=== PATIENT | female | born 1990 | race African-American/Black ===

== ENCOUNTER → 2020-06-22 09:28 | Outpatient (CLI) | payer OTHER, SELFPAY ==
[2020-06-22 14:13] LABS: Urine N gonorrhoeae NOT DETECTED
[2020-06-22 14:19] LABS: Urine Chlamydia NOT DETECTED
== END ==
PROVIDERS: PCP Family Medicine; Visit Provider Specialist
DX: Z34.02 Encounter for supervision of normal first pregnancy, second trimester (principal); Z3A.26 26 weeks gestation of pregnancy
CPT/HCPCS: 87491; 87591

== ENCOUNTER → 2020-07-01 10:58 | Outpatient (CLI) | payer OTHER, SELFPAY ==
[2020-07-01 12:48] LABS: Hematocrit 33.9 % (36-46); Hemoglobin 11.3 g/dL (12.0-16.0)
[2020-07-01 13:15] LABS: GTT (PREG) 1 Hour PP 50gm Dose 117 mg/dL (76-139)
== END ==
PROVIDERS: PCP Family Medicine; Referring Provider Specialist; Visit Provider Specialist
DX: Z34.02 Encounter for supervision of normal first pregnancy, second trimester (principal); Z3A.26 26 weeks gestation of pregnancy
CPT/HCPCS: 36415; 82950; 85014; 85018

== ENCOUNTER → 2020-08-31 16:37 | Outpatient (CLI) | payer OTHER, SELFPAY ==
[2020-09-01 12:14] LABS: Strep Grp B PCR NEG for Grp B Strep
== END ==
PROVIDERS: PCP Family Medicine; Visit Provider Specialist
DX: Z34.03 Encounter for supervision of normal first pregnancy, third trimester (principal); Z3A.36 36 weeks gestation of pregnancy
CPT/HCPCS: 87653

== ENCOUNTER 2020-09-09 16:45 | Outpatient (CLI) | payer OTHER, SELFPAY ==
[2020-09-09 17:41] LABS: Add Manual Diff / Slide Review NO; Basophils Absolute Auto 0 /uL (0-100); Basophils Percent Auto 0.6 % (0-2); Eosinophils Absolute Auto 100 /uL (0-450); Eosinophils Percent Auto 1.6 % (2-4); Hematocrit 35.5 % (36-46); Hemoglobin 11.9 g/dL (12.0-16.0); Lymphocytes Absolute Auto 1100 /uL (1100-4500); Lymphocytes Percent Auto 21.7 % (25-40); Mean Corpuscular HGB Conc 33.6 % (30-36); Mean Corpuscular Hemoglobin 31.6 PG (26-34); Mean Corpuscular Volume 94.1 fL (80-100); Monocytes Absolute Auto 700 /uL (0-900); Monocytes Percent Auto 13.1 % (3-14); Neutrophils Absolute Auto 3300 /uL (1500-7000); Platelet Count 223 X10^3/uL (150-400); Red Blood Cell Count 3.77 X10^6/uL (4.0-5.2); Red Cell Distribution Width 13.6 % (11.6-14.8); White Blood Cell Count 5.3 X10^3/uL (4.5-11.0)
[2020-09-09 17:51] LABS: Aspartate Aminotransferase 23 IU/L (14-36); BUN Creatinine Ratio 9.9 (6-22); Blood Urea Nitrogen 9 mg/dL (7-17); Estimated Glomerular Filt Rate > 60.0 mL/min (>60); Uric Acid 5.6 mg/dL (2.5-6.2)
[2020-09-09 18:02] LABS: Creatinine Urine Random 74.3 mg/dL; Protein (Total) Urine Random 14 mg/dL (0-12); Protein Creatinine Ratio Urine 0.18 GRAM/24H
--- NOTE | 2020-09-09 18:19 | P.TNLD_ITS ---
Visit Information Visit Information Date of evaluation: 09/09/20 Primary OB Provider: Tessa Valle Reason for Evaluation: Yes non-stress test Comments/Additional reasons for admission: Patient sent from clinic for diane luation for preeclampsia given elevated blood pressures in clinic, hand swelling, mild headache. Patient reports mild headache is typical for her after chiropractor appointments, has not tried anything. Vital Signs Vital Signs: 118-140/72-90 [facility] Medical History Anemia Back pain HSV-1 (herpes simplex virus 1) infection No known health problems Velamentous insertion of umbilical cord (~05/10/20) Family History Mother Stillbirth Miscarriage Father Diabetes mellitus Hypertension Arthritis Cataracts, both eyes Hyperlipidemia Grandmother Unknown whether patient has any health problems Grandfather Diabetes mellitus Unknown whether patient has any health problems Grandmother Unknown whether patient has any health problems Grandfather Unknown whether patient has any health problems Social History marital status: household members: spouse lives independently: Yes pets and animals: Yes (X 1 Dog) 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 level: 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) occupational status: unemployed current occupational exposures/hazards: No ( 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 [employer]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: No Smoking Status: Unknown if ever smoked second hand exposure: No alcohol intake: former (not with ) substance use type: does not use Review of Systems Constitutional Constitutional: Reports system reviewed and no additional complaints, except as documented Objective Labs Result Diagrams: 09/09/20 17:30 09/09/20 17:30 Labs: Laboratory Results - last 24 hr 09/09/20 09/09/20 09/09/20 17:00 17:30 17:30 WBC 5.3 RBC 3.77 L Hgb 11.9 L Hct 35.5 L MCV 94.1 MCH 31.6 MCHC 33.6 RDW 13.6 Plt Count 223 Neut % (Auto) 63.0 Lymph % (Auto) 21.7 L [place] % (Auto) 13.1 Eos % (Auto) 1.6 L Baso % (Auto) 0.6 Neut # (Auto) 3300 Lymph # (Auto) 1100 [place] # (Auto) 700 Eos # (Auto) 100 Baso # (Auto) 0 BUN 9 Creatinine 0.91 Estimated GFR > 60.0 BUN/Creatinine Ratio 9.9 Uric Acid 5.6 AST 23 U Random Total Protein 14 H Urine Creatinine 74.3 Protein/Creatinin Ratio 0.18 Evaluation Evaluation Baseline heart rate: 130 Variability: Moderate (11-25) monitor accelerations: Present monitor decelerations: Absent Contraction Frequency (minutes): 10 Category of Tracing: Reactive Status: Category l Laboratory results: Laboratory Tests 09/09/20 09/09/20 09/09/20 17:00 17:30 17:30 WBC 5.3 RBC 3.77 L Hgb 11.9 L Hct 35.5 L MCV 94.1 MCH 31.6 MCHC 33.6 RDW 13.6 Plt Count 223 Neut % (Auto) 63.0 Lymph % (Auto) 21.7 L [place] % (Auto) 13.1 Eos % (Auto) 1.6 L Baso % (Auto) 0.6 Neut # (Auto) 3300 Lymph # (Auto) 1100 [place] # (Auto) 700 Eos # (Auto) 100 Baso # (Auto) 0 BUN 9 Creatinine 0.91 Estimated GFR > 60.0 BUN/Creatinine Ratio 9.9 Uric Acid 5.6 AST 23 U Random Total Protein 14 H Urine Creatinine 74.3 Protein/Creatinin Ratio 0.18 Diagnosis, Plan/Disposition Plan/Disposition Plan: Patient with normal preeclampsia labs including no proteinuria, does not meet diagnostic criteria for gestational hypertension. Given that patient is prior to 39 weeks and that she does not mean diagnostic criteria with largely normal blood pressures, patient to be closely monitored. Precautions for return discussed, patient return in 48 hours for repeat blood pressure monitoring NST. For home blood pressure monitoring, rest. OB Disposition: home
[2020-09-09] MEDS: ACETAMINOPHEN 325 MG TABLET 650 MG PO (18:32)
== END 2020-09-09 18:40 | disposition home or self-care (01) ==
LOC: LABOR 16:59 → OB 09-13 07:49
PROVIDERS: PCP Family Medicine; Referring Provider Obstetrics & Gynecology; Visit Provider Obstetrics & Gynecology
DX: O26.893 Other specified pregnancy related conditions, third trimester (principal); R03.0 Elevated blood-pressure reading, without diagnosis of hypertension; M79.89 Other specified soft tissue disorders; R51.9 Headache, unspecified; Z3A.38 38 weeks gestation of pregnancy
CPT/HCPCS: 59050; 82570; 84156; 84450; 84550; 85025; G0378; G0379

== ENCOUNTER 2020-09-11 12:13 | Outpatient (CLI) | payer OTHER, SELFPAY ==
--- NOTE | 2020-09-11 12:41 | PM.OBTRLD ---
Visit Information Visit Information Date of evaluation: 09/11/20 Primary OB Provider: Manjula San On-call OB Provider: Danna Reveles Reason for Evaluation: Yes non-stress test non-stress test reason: hypertension/pre-eclampsia Vital Signs Vital Signs: 140s over 90s, 140s over 90s, 130s over 80s [facility] Medical History Anemia Back pain HSV-1 (herpes simplex virus 1) infection No known health problems Velamentous insertion of umbilical cord (~05/10/20) Family History Mother Stillbirth Miscarriage Father Diabetes mellitus Hypertension Arthritis Cataracts, both eyes Hyperlipidemia Grandmother Unknown whether patient has any health problems Grandfather Diabetes mellitus Unknown whether patient has any health problems Grandmother Unknown whether patient has any health problems Grandfather Unknown whether patient has any health problems Social History marital status: household members: spouse lives independently: Yes pets and animals: Yes (X 1 Dog) 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 level: 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) occupational status: unemployed current occupational exposures/hazards: No ( 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 Smoking Status: Unknown if ever smoked second hand exposure: No alcohol intake: former (not with ) substance use type: does not use Exam Vital Signs (past 8 hours): Generally: Patient lying in bed on her left side, no acute distress Evaluation Evaluation Baseline heart rate: 135 Variability: Moderate (11-25) monitor accelerations: Present monitor decelerations: Absent Contraction Frequency (minutes): 12 Uterine Contraction Intensity: Mild Category of Tracing: Reactive Cervical dilation (cm): 1 Cervical effacement (%): 80 Diagnosis, Plan/Disposition Plan/Disposition Plan: Assessment: 30-year-old 1 para 0 at 38 and 3 7th weeks gestation with gestational hypertension Reactive nonstress test Plan: Follow-up with Dr. San on September 14, 2020 for routine OB appointment Signs and symptoms of labor and preeclampsia reviewed kick counts reviewed OB Disposition: home
== END 2020-09-11 12:35 | disposition home or self-care (01) ==
LOC: LABOR 12:46 → OB 09-13 07:48
PROVIDERS: PCP Family Medicine; Referring Provider Obstetrics & Gynecology; Visit Provider Obstetrics & Gynecology
DX: O13.3 Gestational [pregnancy-induced] hypertension without significant proteinuria, third trimester (principal); Z3A.38 38 weeks gestation of pregnancy
CPT/HCPCS: 59025; G0378; G0379

== ENCOUNTER 2020-09-15 13:31 | Observation (INO) | payer OTHER, SELFPAY ==
[2020-09-15 14:28] LABS: Add Manual Diff / Slide Review NO; Basophils Absolute Auto 0 /uL (0-100); Basophils Percent Auto 0.6 % (0-2); Eosinophils Absolute Auto 100 /uL (0-450); Eosinophils Percent Auto 1.3 % (2-4); Hemoglobin 11.8 g/dL (12.0-16.0); Lymphocytes Absolute Auto 1000 /uL (1100-4500); Mean Corpuscular HGB Conc 33.6 % (30-36); Mean Corpuscular Hemoglobin 31.6 PG (26-34); Mean Corpuscular Volume 94.1 fL (80-100); Monocytes Absolute Auto 600 /uL (0-900); Monocytes Percent Auto 12.6 % (3-14); Neutrophils Absolute Auto 3400 /uL (1500-7000); Neutrophils Percent Auto 66.5 % (50-75); Platelet Count 225 X10^3/uL (150-400); Red Blood Cell Count 3.72 X10^6/uL (4.0-5.2); Red Cell Distribution Width 13.4 % (11.6-14.8); White Blood Cell Count 5.1 X10^3/uL (4.5-11.0)
[2020-09-15 14:41] LABS: Alanine Aminotransferase 17 IU/L (<35); Albumin 3.4 g/dL (3.5-5.0); Alkaline Phosphatase 131 U/L (38-126); Aspartate Aminotransferase 24 IU/L (14-36); BUN Creatinine Ratio 7.1 (6-22); Bilirubin Total 0.4 mg/dL (0.2-1.3); Blood Urea Nitrogen 8 mg/dL (7-17); Carbon Dioxide 24 mmol/L (22-32); Chloride 104 mmol/L (98-107); Estimated Glomerular Filt Rate 56.5 mL/min (>60); Globulin 3.3 g/dL (1.7-4.1); Glucose 102 mg/dL (70-100); HEMOLYSIS < 15 (0-50); Potassium 3.7 mmol/L (3.4-5.1); Sodium 132 mmol/L (137-145); Total Protein 6.7 g/dL (6.3-8.2)
[2020-09-15 15:07] LABS: Creatinine Urine Random 179.2 mg/dL; Protein (Total) Urine Random 14 mg/dL (0-12); Protein Creatinine Ratio Urine 0.07 GRAM/24H
--- NOTE | 2020-09-15 15:27 | P.TNLD_ITS ---
Visit Information Visit Information Date of evaluation: 09/15/20 Primary OB Provider: Manjula San Reason for Evaluation: Yes non-stress test non-stress test reason: hypertension/pre-eclampsia Vital Signs Vital Signs: Blood pressure 142/92 to 128/88 pulse 100 PFSH Medical History Anemia Back pain HSV-1 (herpes simplex virus 1) infection No known health problems Velamentous insertion of umbilical cord (~05/10/20) Family History Mother Stillbirth Miscarriage Father Diabetes mellitus Hypertension Arthritis Cataracts, both eyes Hyperlipidemia Grandmother Unknown whether patient has any health problems Grandfather Diabetes mellitus Unknown whether patient has any health problems Grandmother Unknown whether patient has any health problems Grandfather Unknown whether patient has any health problems Social History marital status: household members: spouse lives independently: Yes pets and animals: Yes (X 1 Dog) 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 She has good movement. No leakage of fluid. No regular contractions. Objective Labs Result Diagrams: 09/15/20 14:18 09/15/20 14:18 Labs: Laboratory Results - last 24 hr 09/15/20 09/15/20 09/15/20 14:18 14:18 14:50 WBC 5.1 RBC 3.72 L Hgb 11.8 L Hct 35.0 L MCV 94.1 MCH 31.6 MCHC 33.6 RDW 13.4 Plt Count 225 Neut % (Auto) 66.5 Lymph % (Auto) 19.[address] [place] % (Auto) 12.6 Eos % (Auto) 1.3 L Baso % (Auto) 0.6 Neut # (Auto) 3400 Lymph # (Auto) [address] [place] # (Auto) 600 Eos # (Auto) 100 Baso # (Auto) 0 Sodium 132 L Potassium 3.7 Chloride 104 Carbon Dioxide 24 BUN 8 Creatinine 1.13 H Estimated GFR 56.5 L BUN/Creatinine Ratio 7.1 Glucose 102 H Calcium 9.0 Total Bilirubin 0.4 AST 24 ALT 17 Alkaline Phosphatase 131 H Total Protein 6.7 Albumin 3.4 L Globulin 3.3 Albumin/Globulin Ratio 1.0 U Random Total Protein 14 H Urine Creatinine 179.2 Protein/Creatinin Ratio 0.07 Evaluation Evaluation Baseline heart rate: 125 Variability: Average (6-10) monitor accelerations: Present monitor decelerations: Absent Contraction Frequency (minutes): 0 Category of Tracing: Reactive Status: Category l Laboratory results: Laboratory Tests 09/15/20 09/15/20 09/15/20 14:18 14:18 14:50 WBC 5.1 RBC 3.72 L Hgb 11.8 L Hct 35.0 L MCV 94.1 MCH 31.6 MCHC 33.6 RDW 13.4 Plt Count 225 Neut % (Auto) 66.5 Lymph % (Auto) 19.[address] [place] % (Auto) 12.6 Eos % (Auto) 1.3 L Baso % (Auto) 0.6 Neut # (Auto) 3400 Lymph # (Auto) [address] [place] # (Auto) 600 Eos # (Auto) 100 Baso # (Auto) 0 Sodium 132 L Potassium 3.7 Chloride 104 Carbon Dioxide 24 BUN 8 Creatinine 1.13 H Estimated GFR 56.5 L BUN/Creatinine Ratio 7.1 Glucose 102 H Calcium 9.0 Total Bilirubin 0.4 AST 24 ALT 17 Alkaline Phosphatase 131 H Total Protein 6.7 Albumin 3.4 L Globulin 3.3 Albumin/Globulin Ratio 1.0 U Random Total Protein 14 H Urine Creatinine 179.2 Protein/Creatinin Ratio 0.07 Diagnosis, Plan/Disposition Final Diagnosis (1) Hypertension affecting in third trimester: Status: Acute Plan/Disposition Plan: Reactive nonstress test. PIH labs are unchanged. Patient would prefer not to be induced. Despite discussion of possibility that her high blood pressure will turn into preeclampsia with possible seizure that could her harm her and/or the baby.
== END 2020-09-15 15:20 | disposition home or self-care (01) ==
PROVIDERS: Admitting Provider Specialist; PCP Family Medicine; Referring Provider Specialist; Visit Provider Specialist
DX: O13.3 Gestational [pregnancy-induced] hypertension without significant proteinuria, third trimester (principal); Z3A.39 39 weeks gestation of pregnancy
CPT/HCPCS: 36415; 59025; 59050; 80053; 82570; 84156; 85025; G0378; G0379

== ENCOUNTER 2020-09-19 11:19 | Inpatient (IN) | payer OTHER, SELFPAY ==
--- NOTE | 2020-09-19 11:33 | DI.US.S_ITS ---
PROCEDURE: US OB BIOPHYSICAL PROFILE INDICATIONS: HTN OUTSIDE/PRIOR DATING DATA: Last menstrual period (LMP): 12/17/2019 . LMP-based estimated date of delivery (SAL): 09/22/2020 . First dating scan (date and location): 06/22/2020 . Estimated date of delivery (SAL) from first dating scan: 09/26/2020 . TECHNIQUE: Real-time scanning was performed of the fetus, with image documentation and biometric measurements. Biophysical profile was also obtained. COMPARISON: None. FINDINGS: General: A single living intrauterine gestation is present. Presentation: Vertex. Placenta: Placental position is left fundus , without previa. Amniotic fluid index: 20 cm, normal range is 5-24 cm. heart rate: 130 beats per minute. Maternal cervical canal: Not measured. Biophysical profile: Tone: 2 points. Movement: 2 points. Respiration: 2 points. Largest pocket of fluid: 2 points. Umbilical artery Doppler: Not measured IMPRESSION: Ultrasound BPP = 8 Dictated by: Ashok Person M.D. on 09/19/2020 at 13:38 Approved by: Ashok Person M.D. on 09/19/2020 at 13:41
[2020-09-19 12:45] LABS: Add Manual Diff / Slide Review NO; Basophils Absolute Auto 0 /uL (0-100); Basophils Percent Auto 0.3 % (0-2); Eosinophils Absolute Auto 100 /uL (0-450); Hematocrit 35.9 % (36-46); Hemoglobin 12.1 g/dL (12.0-16.0); Lymphocytes Absolute Auto 1000 /uL (1100-4500); Lymphocytes Percent Auto 18.2 % (25-40); Mean Corpuscular HGB Conc 33.6 % (30-36); Monocytes Absolute Auto 600 /uL (0-900); Monocytes Percent Auto 10.9 % (3-14); Neutrophils Absolute Auto 3700 /uL (1500-7000); Neutrophils Percent Auto 69.6 % (50-75); Platelet Count 217 X10^3/uL (150-400); Red Blood Cell Count 3.78 X10^6/uL (4.0-5.2); Red Cell Distribution Width 13.9 % (11.6-14.8); White Blood Cell Count 5.4 X10^3/uL (4.5-11.0)
[2020-09-19 13:01] LABS: Alanine Aminotransferase 17 IU/L (<35); Albumin 3.5 g/dL (3.5-5.0); Albumin Globulin Ratio 1.1 (1.0-2.8); Alkaline Phosphatase 131 U/L (38-126); Aspartate Aminotransferase 23 IU/L (14-36); BUN Creatinine Ratio 10.8 (6-22); Bilirubin Total 0.3 mg/dL (0.2-1.3); Blood Urea Nitrogen 11 mg/dL (7-17); Calcium 9.2 mg/dL (8.4-10.2); Carbon Dioxide 25 mmol/L (22-32); Chloride 105 mmol/L (98-107); Estimated Glomerular Filt Rate > 60.0 mL/min (>60); Globulin 3.2 g/dL (1.7-4.1); Glucose 82 mg/dL (70-100); HEMOLYSIS < 15 (0-50); Lactate Dehydrogenase 343 U/L (313-618); Potassium 3.9 mmol/L (3.4-5.1); Sodium 131 mmol/L (137-145); Total Protein 6.7 g/dL (6.3-8.2)
[2020-09-19 13:02] LABS: Uric Acid 5.4 mg/dL (2.5-6.2)
[2020-09-19 15:55] VITALS: BP 140/89
[2020-09-19 16:11] LABS: COVID19 -Nasal RAPID Negative (Negative)
--- NOTE | 2020-09-19 16:57 | PM.OBHP.1 ---
OB HPI Date/Time Date of admission: 09/19/20 Date Patient Seen: 09/19/20 Time Patient Seen: 12:30 History of Present Condition Chief complaint: OBSERVATION : 1 Para: 0 Estimated Date of Delivery: 09/22/20 Estimated Gestational Age (weeks): 39 Narrative: Chana Moody is a 30 year old at 39 weeks 4 days admitted with worsening gestational hypertension. Patient has reported in the past that she has be increased face and hand swelling and headaches, though she denies the symptoms today. She reports intermittent contractions, denies vaginal bleeding or loss of fluid, and reports good movement. The patient was diagnosed with gestational hypertension 10 days ago, and has been expectantly managed as an outpatient as she declined induction. Her was complicated by transfer of care at 12 weeks from [place] to [place] and then from [place] to [place]. She has a velamentous cord insertion, and history of HSV 1, though with no lesions and has not been on Valtrex. Other than the above, the patient has no contributory medical, surgical, family, or social history. Evaluation Evaluation Baseline heart rate: 130 Variability: Average (6-10) monitor accelerations: Present monitor decelerations: Variable Contraction Frequency (minutes): 7 Category of Tracing: Reactive Status: Category l Cervical dilation (cm): 1 Cervical effacement (%): 75 station: -2 Laboratory results: Laboratory Tests 09/19/20 09/19/20 09/19/20 12:37 12:37 12:37 WBC 5.4 RBC 3.78 L Hgb 12.1 Hct 35.9 L MCV 95.0 MCH 32.0 MCHC 33.6 RDW 13.9 Plt Count 217 Neut % (Auto) 69.6 Lymph % (Auto) 18.2 L [place] % (Auto) 10.9 Eos % (Auto) 1.0 L Baso % (Auto) 0.3 Neut # (Auto) 3700 Lymph # (Auto) 1000 L [place] # (Auto) 600 Eos # (Auto) 100 Baso # (Auto) 0 Sodium 131 L Potassium 3.9 Chloride 105 Carbon Dioxide 25 BUN 11 Creatinine 1.02 Estimated GFR > 60.0 BUN/Creatinine Ratio 10.8 Glucose 82 Uric Acid Calcium 9.2 Total Bilirubin 0.3 AST 23 ALT 17 Alkaline Phosphatase 131 H Lactate Dehydrogenase 343 Total Protein 6.7 Albumin 3.5 Globulin 3.2 Albumin/Globulin Ratio 1.1 SARS-CoV-2 (PCR) 09/19/20 09/19/20 12:37 15:35 WBC RBC Hgb Hct MCV MCH MCHC RDW Plt Count Neut % (Auto) Lymph % (Auto) [place] % (Auto) Eos % (Auto) Baso % (Auto) Neut # (Auto) Lymph # (Auto) [place] # (Auto) Eos # (Auto) Baso # (Auto) Sodium Potassium Chloride Carbon Dioxide BUN Creatinine Estimated GFR BUN/Creatinine Ratio Glucose Uric Acid 5.4 Calcium Total Bilirubin AST ALT Alkaline Phosphatase Lactate Dehydrogenase Total Protein Albumin Globulin Albumin/Globulin Ratio SARS-CoV-2 (PCR) Negative Comments: Long periods of minimal variability, rare variable versus late decelerations. Largely category 1 and reactive. [facility] Medical History Anemia Back pain HSV-1 (herpes simplex virus 1) infection No known health problems Velamentous insertion of umbilical cord (~05/10/20) Family History Mother Stillbirth Miscarriage Father Diabetes mellitus Hypertension Arthritis Cataracts, both eyes Hyperlipidemia Grandmother Unknown whether patient has any health problems Grandfather Diabetes mellitus Unknown whether patient has any health problems Grandmother Unknown whether patient has any health problems Grandfather Unknown whether patient has any health problems Social History marital status: household members: spouse lives independently: Yes pets and animals: Yes (X 1 Dog) education level: 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) occupational status: unemployed current occupational exposures/hazards: No ( 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 Smoking Status: Never smoker second hand exposure: No alcohol intake: former (not with ) substance use type: does not use Meds Home Medications and Allergies Home Medications Medication Instructions Recorded Confirmed Type cholecalciferol (vitamin D3) 250 250 mcg PO DAILY 06/21/20 09/19/20 History mcg (10,000 unit) capsule omega-3 fatty acids-fish oil 360 1 cap PO BID 06/21/20 09/19/20 History mg-1,200 mg capsule prenat.vits,júnior,xxx-cujc-luyvo 1 tab PO DAILY 06/21/20 09/19/20 History Allergies Allergy/AdvReac Type Severity Reaction Status Date / Time No Known Drug Allergies Allergy Verified 07/13/20 13:46 Review of Systems Constitutional Constitutional: Reports system reviewed and no additional complaints, except as documented Cardiovascular Cardiovascular: Reports system reviewed and no additional complaints, except as documented Respiratory Respiratory: Reports system reviewed and no additional complaints, except as documented Gastrointestinal Gastrointestinal: Reports system reviewed and no additional complaints, except as documented Genitourinary Genitourinary: Reports system reviewed and no additional complaints, except as documented Musculoskeletal Musculoskeletal: Reports as per HPI Neurologic Neurologic: Reports as per HPI Exam Vital Signs (past 8 hours): 137-159/87-103, HR 90s 09/19/20 15:55 Blood Pressure 140/89 Const General: cooperative and comfortable Other: Increased swelling in face and hands compared to at prior visit with me Resp Effort & Inspection: normal respiratory effort Auscultation: clear to auscultation bilaterally Cardio Rate: regular rate Rhythm: regular rhythm GI Palpation: soft and No tender External Female Exam: normal external appearance Extrem Other: 2+ pedal edema, 1+ DTRs Objective Labs Result Diagrams: 09/19/20 17:30 09/19/20 12:37 Labs: Laboratory Results - last 24 hr 09/19/20 09/19/20 09/19/20 12:37 12:37 12:37 WBC 5.4 RBC 3.78 L Hgb 12.1 Hct 35.9 L MCV 95.0 MCH 32.0 MCHC 33.6 RDW 13.9 Plt Count 217 Neut % (Auto) 69.6 Lymph % (Auto) 18.2 L [place] % (Auto) 10.9 Eos % (Auto) 1.0 L Baso % (Auto) 0.3 Neut # (Auto) 3700 Lymph # (Auto) 1000 L [place] # (Auto) 600 Eos # (Auto) 100 Baso # (Auto) 0 Sodium 131 L Potassium 3.9 Chloride 105 Carbon Dioxide 25 BUN 11 Creatinine 1.02 Estimated GFR > 60.0 BUN/Creatinine Ratio 10.8 Glucose 82 Uric Acid Calcium 9.2 Total Bilirubin 0.3 AST 23 ALT 17 Alkaline Phosphatase 131 H Lactate Dehydrogenase 343 Total Protein 6.7 Albumin 3.5 Globulin 3.2 Albumin/Globulin Ratio 1.1 SARS-CoV-2 (PCR) 09/19/20 09/19/20 12:37 15:35 WBC RBC Hgb Hct MCV MCH MCHC RDW Plt Count Neut % (Auto) Lymph % (Auto) [place] % (Auto) Eos % (Auto) Baso % (Auto) Neut # (Auto) Lymph # (Auto) [place] # (Auto) Eos # (Auto) Baso # (Auto) Sodium Potassium Chloride Carbon Dioxide BUN Creatinine Estimated GFR BUN/Creatinine Ratio Glucose Uric Acid 5.4 Calcium Total Bilirubin AST ALT Alkaline Phosphatase Lactate Dehydrogenase Total Protein Albumin Globulin Albumin/Globulin Ratio SARS-CoV-2 (PCR) Negative Assessment and Plan Assessment and Plan Assessment and Plan narrative: This patient is admitted with worsening gestational hypertension at 39 weeks 4 days. The patient's blood pressures are significantly elevated from her baseline, and though the patient denies any severe features, she has significantly increased hand and face swelling compared to my prior visit. Patient's due date is in 3 days, and we discussed at length that the guideline for gestational hypertension is for induction of labor after 37 weeks. The patient desires natural childbirth, and had previously refused induction. We discussed that if she refuses induction today, we will still continue to care for her to the best of our ability, but that my strong recommendation is for induction of labor. Given her worsening swelling, her increased creatinine compared to her baseline, her worsening blood pressures, and her gestational age, the risks of continuing the are significant. We discussed the risk of progression to preeclampsia with severe features versus eclampsia, the risk of stroke, seizure, and maternal , the risk of stillbirth, placental abruption, and placental insufficiency. We discussed that preeclampsia can worsen suddenly and acutely, and the antihypertensive medications are unlikely to fully prevent any of these sequelae. We discussed that if the patient desired discharge, I would recommend antihypertensives and close follow-up, but that I would ask her to sign an against medical advice form. We discussed that the mechanism of induction would be a Cervidil for cervical ripening, anticipating transition to Pitocin in the morning. We discussed that there is an increased risk of section with induction with an unfavorable cervix, that there is an increased risk of section due to placental insufficiency due to underlying -induced hypertension, and the risks of section in my opinion are less severe than worsening -induced hypertensive disease. The patient vocalized understanding of all the above, and after discussion with her , is willing to consider induction of labor pending discussion with Dr. Reveles, who will be present during the day tomorrow and managing the patient's labor. We discussed that if the patient develops severe features she should alert the nursing staff, that is severe preeclampsia requires a magnesium drip and potential antihypertensives, and the patient vocalized understanding. All of the patient's questions about all the above were answered, and the patient was encouraged to alert nursing staff if any further questions or symptoms develop. -if patient remains for induction, anticipate Cervidil with Pitocin in a.m.. -continuous monitoring, q.1 hour vitals with q4 while asleep if have not been severe range -if blood pressure over 160 systolic or 110 diastolic, repeat in 15 minutes. Alert physician if remain above these parameters in 15 minutes or if 2 are above these parameters within 1 hour.
[2020-09-19] MEDS: DINOPROSTONE VAG (CERVIDIL) 10 MG VAG (17:53)
[2020-09-19 17:55] LABS: Add Manual Diff / Slide Review NO; Basophils Absolute Auto 0 /uL (0-100); Basophils Percent Auto 0.2 % (0-2); Eosinophils Absolute Auto 100 /uL (0-450); Hematocrit 37.6 % (36-46); Hemoglobin 12.4 g/dL (12.0-16.0); Lymphocytes Absolute Auto 1200 /uL (1100-4500); Lymphocytes Percent Auto 18.7 % (25-40); Mean Corpuscular Hemoglobin 31.3 PG (26-34); Mean Corpuscular Volume 94.8 fL (80-100); Monocytes Absolute Auto 500 /uL (0-900); Monocytes Percent Auto 7.7 % (3-14); Neutrophils Absolute Auto 4700 /uL (1500-7000); Neutrophils Percent Auto 72.4 % (50-75); Platelet Count 261 X10^3/uL (150-400); Red Blood Cell Count 3.97 X10^6/uL (4.0-5.2); Red Cell Distribution Width 13.8 % (11.6-14.8); White Blood Cell Count 6.5 X10^3/uL (4.5-11.0)
[2020-09-19 18:03] LABS: Creatinine Urine Random 190.3 mg/dL; Protein (Total) Urine Random 14 mg/dL (0-12); Protein Creatinine Ratio Urine 0.07 GRAM/24H
[2020-09-19] MEDS: ZOLPIDEM 5 MG TABLET PO (23:45)
[2020-09-20] MEDS: ACETAMINOPHEN 325 MG TABLET 650 MG PO (09:08)
--- NOTE | 2020-09-20 17:46 | PM.OBPNLAB ---
Date/Time Date Patient Seen: 09/20/20 Time Patient Seen: 07:40 Pain Control Pain control: tolerating well Pelvic Exam Dilation (cm): 4 Effacement (%): 40 station: -1 Amniotic membrane status: Intact Contractions Contractions on admission: regular Monitor mode: External Contraction frequency (min): 3 Contraction duration (min): 1 Contraction pattern: Regular Contraction intensity: Moderate Status status: Category l Heart Rate Baseline: 140 Monitor Accelerations: Present Monitor Decelerations: Variable Monitor Variability: Moderate Assessment and Plan Assessment: active labor and induction ongoing Plan: continuous present management Comments: AROM in 2 hours
--- NOTE | 2020-09-20 17:55 | PM.OBPNLAB ---
Date/Time Date Patient Seen: 09/20/20 Time Patient Seen: 09:30 Pain Control Pain control: other (Pain difficult) Pelvic Exam Dilation (cm): 4 Effacement (%): 95 station: -1 Amniotic membrane status: Bulging Contractions Monitor mode: External Contraction frequency (min): 3 Contraction duration (min): 1 Contraction pattern: Regular Contraction intensity: Moderate Status status: Category l Heart Rate Baseline: 140 Monitor Accelerations: Present Monitor Decelerations: Absent Monitor Variability: Moderate Assessment and Plan Assessment: active labor Plan: continuous present management Comments: AROM with copious clear amniotic fluid
--- NOTE | 2020-09-20 17:57 | PM.OBPNLAB ---
Date/Time Date Patient Seen: 09/20/20 Time Patient Seen: 13:10 Pain Control Pain control: epidural Pelvic Exam Dilation (cm): 9 Effacement (%): 100 station: 0 Amniotic membrane status: Ruptured Contractions Contractions on admission: none Monitor mode: External Contraction frequency (min): 3 Contraction pattern: Regular Contraction intensity: Moderate Status status: Category l Heart Rate Baseline: 130 Monitor Accelerations: Present Monitor Decelerations: Absent Monitor Variability: Moderate Assessment and Plan Assessment: active labor Plan: continuous present management Comments: Labor down
--- NOTE | 2020-09-20 17:59 | PM.OBPRVD ---
Events: Induced HTN and Labor Induction Labor & Delivery Delivery date: 09/20/20 Cervical ripening method: per Cervidil protocol Induction method: AROM Delivery monitor: external FHT and external uterine Route of delivery: Episiotomy description: None L&D Laceration Description: Vaginal - 2nd Degree Delivery repair: vicryl and chromic Estimated blood loss (mL): 400 Anesthesia Type: Epidural Complications: None Narrative: Patient was complete at 1:28 p.m.. She was allowed to labor down. She began pushing at 3:05 p.m.. After 30 minutes of pushing she had a spontaneous vaginal delivery of a live male in the vertex presentation over an intact perineum at 3:35 p.m.. A nuchal cord x1 was reduced on the perineum. The remainder of the body delivered without difficulty and was placed on mom's abdomen. The cord stopped pulsing at 3:57 p.m.. The cord was double clamped and cut. Cord bloods were obtained. The placenta delivered intact with a three-vessel cord at 3:58 p.m.. 10 units of Pitocin was given in the IV fluids. A second-degree vaginal laceration was repaired with 2 0 Vicryl in a running interlocking fashion. Two 0 chromic was used for a small area on the perineum. Apgars 8 at 1 minute and 9 at 5 minutes. Estimated blood loss 400 cc. Epidural analgesia. . Mom and infant stable to recovery. [place] Baby 1: Presentation: vertex Position: Left Occiput Anterior Placenta delivery description: Spontaneous Cord Vessel Description: 3 Vessels, Nuchal Cord, Loose, Reduced and Clamped/Cut (After cord stopped pulsing) score (1 min): 8 score (5 min): 9 Plan for aftercare: Routine care
[2020-09-20] MEDS: IBUPROFEN 600 MG TABLET PO (19:46)
[2020-09-20] MEDS: DERMOPLAST SPRAY 20% 60 ML 1 SPRAY TOP (19:47)
[2020-09-20] MEDS: LANOLIN OINT 7 GM 1 APPLIC TOP (19:47)
[2020-09-20 20:18] VITALS: BP 158/92; PULSE 68
[2020-09-20] MEDS: LABETALOL 100 MG TABLET PO (20:18)
[2020-09-21] MEDS: IBUPROFEN 600 MG TABLET PO ×3 (02:44→16:40)
[2020-09-21 07:33] LABS: Hematocrit 32.1 % (36-46); Hemoglobin 10.5 g/dL (12.0-16.0)
[2020-09-21 08:14] LABS: RPR Screen Non Reactive (Non Reactive)
[2020-09-21 08:38] VITALS: BP 151/91; PULSE 87
[2020-09-21] MEDS: PRENATAL VIT,CALC/IRON/FOLIC 1 TABLET 1 TAB PO (08:38)
[2020-09-21] MEDS: DOCUSATE 100 MG CAPSULE PO (08:38)
[2020-09-21] MEDS: LABETALOL 100 MG TABLET PO (08:38)
[2020-09-21 14:38] VITALS: BP 151/91; PULSE 87; RESP 16; TEMP 37.4
--- NOTE | 2020-09-26 01:25 | P.DS_ITS ---
Discharge Providers Provider Date of admission: 09/19/20 11:19 Discharge Date: 09/21/20 Primary care physician: Alondra Gamble MD Discharge provider: Danna Reveles MD Summary Hospital Course Date Patient Seen: 09/21/20 Time Patient Seen: 13:30 Diagnoses: 39-4/7 weeks gestation Gestational hypertension Cervical ripening with Cervidil Artificial rupture of membranes Epidural analgesia Spontaneous vaginal delivery Hospital Course: Patient is a 30-year-old 1 para 1 who presented on September 19, 2020 for cervical ripening with Cervidil. She received 1 dose. On the morning of September 20, 2020 she was progressing into active labor. Artificial rupture membranes was performed with clear amniotic fluid. The patient received an epidural for pain management. She progressed to complete dilation and had a spontaneous vaginal delivery without complication. Her course was unremarkable. Peripartum Data Delivery Method: Natural Vaginal Laceration Description: Vaginal - 2nd Degree Episiotomy description: None Procedures: Cervidil cervical ripening Artificial rupture of membranes Epidural analgesia Spontaneous vaginal delivery Second-degree laceration and repair complications: none [place] 1: Gender: Female Disposition of : home Status at Discharge Cognitive/behavioral status at discharge: oriented Functional status at discharge: independent ambulation Overall status at discharge: patient is progressing back to baseline Time Spent with Patient Time attestation: Total time spent providing and/or coordinating discharge services: Time spent: Less than 30 minutes Objective Labs Result Diagrams: 09/21/20 07:21 09/19/20 12:37 Exam Vital Signs (past 8 hours): Generally: Patient is sitting up in bed, holding , no acute distress Fundus: Firm at U -1 Extremities: 1+ edema, negative Homans, 1+ DTRs Discharge Plan Discharge Plan Patient Disposition: Home Provider Discharge Comment: Call with fever, chills, or bleeding vaginally more than a pad an hour Call with headache not taken care of with ibuprofen or Tylenol, blurred vision, spots before her eyes, or right upper quadrant pain Push fluids Ibuprofen 600 mg every 6 hours as needed for cramping or perineal pain Continue vitamins Discharge orders & Medications Prescriptions: New labetalol 100 mg tablet 100 mg PO BID Qty: 60 RF: 0 hydrocortisone [Anusol-HC] 2.5 % cream with perineal applicator 1 applic OR QD-BID PRN (Reason: hemorrhoids) Qty: 30 RF: 2 Continued prenat.vits,júnior,[id number] Tablet 1 tab PO DAILY RF: 0 cholecalciferol (vitamin D3) 250 mcg (10,000 unit) capsule 250 mcg PO DAILY RF: 0 omega-3 fatty acids-fish oil [Fish Oil] 360-1,200 mg capsule 1 cap PO BID RF: 0 Follow up/Referrals: Danna Reveles MD [Physician] - 6 Weeks (1-2 wk BP check when brings baby in to see Peds. Appointment on Thursday, November 02 at 11:[address] Reveles on baby's appoinment date so they can fit you in for BP check. clinic appointment on Thursday, October 26 at 11:00 am for you and awilda) Diet/Activity/Treatments Diet: Regular Activity: Nothing in the vagina Skin/Wound/Dressing Care Report to your healthcare provider any signs of infection, such as:: chills, fever, increased pain and unusual drainage Visit Report/Discharge Packet Instructions: Pre-eclampsia, DI for Labor and Delivery, Vaginal Discharge Data Primary Care Provider: Alondra Gamble
== END 2020-09-21 17:34 | disposition home or self-care (01) | DRG 807 ==
PROVIDERS: Obstetrics & Gynecology; Specialist; Admitting Provider Obstetrics & Gynecology; PCP Family Medicine; Referring Provider Obstetrics & Gynecology; Visit Provider Obstetrics & Gynecology
DX: O13.4 Gestational [pregnancy-induced] hypertension without significant proteinuria, complicating childbirth (principal); O43.123 Velamentous insertion of umbilical cord, third trimester; O69.81X0 Labor and delivery complicated by cord around neck, without compression, not applicable or unspecified; O70.1 Second degree perineal laceration during delivery; Z37.0 Single live birth; Z3A.39 39 weeks gestation of pregnancy
CPT/HCPCS: 01967; 36415; 59050; 59410; 76819; 80053; 82570; 83615; 84156; 84550; 85014; 85018; 85025; 86592; 86850; 86900; 86901; 87635; C9803; G0379